=== PATIENT | male | born 1985 | race African-American/Black ===

== ENCOUNTER 2016-07-04 05:11 | Emergency (ER) | payer SELFPAY ==
[~2016-07-04] VITALS: Ht 180.3 cm; Wt 75.0 kg
[2016-07-04 05:55] VITALS: BP 122/78
[2016-07-04] MEDS ORDERED: TETANUS, DIPHTHERIA, PERTUSSIS VAC/PF 0.5ML (>7YR OLD) IM ONE (06:15)
[2016-07-04] MEDS ORDERED: LIDOCAINE HCL 1% 20ML VIAL (Pyxis) INJ MC ONE (06:15)
[2016-07-04] MEDS ORDERED: BACITRACIN ZINC OINT UDPKT TOP ONE (06:15)
== END 2016-07-04 07:54 | disposition home or self-care (01) ==
LOC: ER 05:12
DX: S61.411A Laceration without foreign body of right hand, initial encounter (principal); F17.200 Nicotine dependence, unspecified, uncomplicated; W25.XXXA Contact with sharp glass, initial encounter; Y93.89 Activity, other specified; Y92.89 Other specified places as the place of occurrence of the external cause; Y99.8 Other external cause status
CPT/HCPCS: 12001; 90471; 90715; 99283; J3490; X7700; Z7610